=== PATIENT | female | born 1965 | race Caucasian/White ===

== ENCOUNTER 2016-08-08 19:07 | Inpatient (IN) | payer OTHER, SELFPAY ==
[~2016-08-08] VITALS: Ht 162.6 cm; Wt 63.6 kg
[2016-08-08] MEDS ORDERED: LORazepam 2 MG/ML VIAL (J2060) IV STA ×2 (19:12→19:17)
[2016-08-08 19:35] LABS: BASO # 0.1 K/mm3 (0.0-0.2); BASO % 0.4 % (0.0-1.0); EOS # 0.2 K/mm3 (0.0-0.50); EOS % 1.3 % (0.0-3.0); LARGE UNSTAINED CELL # 0.6 K/mm3 (0.0-0.4); LARGE UNSTAINED CELL % 3.7 % (0.0-4.0); LYMPH # 8.1 K/mm3 (1.5-4.5); LYMPH % 53.3 % (24.0-44.0); MEAN CORPUSCULAR HEMOGLOBIN 31.3 pg (27.0-33.0); MEAN CORPUSCULAR HGB CONC 34.1 g/dl (32.0-36.5); MEAN CORPUSCULAR VOLUME 91.9 fl (80.0-96.0); MONO # 0.6 K/mm3 (0.0-0.8); MONO % 3.8 % (0.0-5.0); NEUTROPHILS # 5.6 K/mm3 (1.8-7.7); NEUTROPHILS % 37.4 % (36.0-66.0); PLATELET COUNT, AUTOMATED 344 k/mm3 (150-450); RED CELL DISTRIBUTION WIDTH 12.8 % (11.5-14.5)
[2016-08-08 19:40] LABS: WHITE BLOOD COUNT 15.1 K/mm3 (4.0-10.0)
[2016-08-08] MEDS ORDERED: MIDAZOLAM HCL 50 MG in D5W 40 ML IV SCH ×2 (19:45→19:50)
[2016-08-08] MEDS ORDERED: NS 1,000 ML IV ONE (19:45)
[2016-08-08 19:49] LABS: ANION GAP 13 MEQ/L (8-16); BLOOD UREA NITROGEN 10 MG/DL (7-18); CALCIUM LEVEL 8.5 MG/DL (8.5-10.1); CARBON DIOXIDE LEVEL 18 MEQ/L (21-32); CHLORIDE LEVEL 110 MEQ/L (98-107); CREATININE FOR GFR 0.99 MG/DL (0.55-1.02); GLOMERULAR FILTRATION RATE > 60.0 (>58); GLUCOSE, FASTING 100 MG/DL (70-105); POTASSIUM SERUM 3.7 MEQ/L (3.5-5.1); SODIUM LEVEL 141 MEQ/L (136-145)
[2016-08-08] MEDS ORDERED: MIDAZOLAM INJ 5 MG/ML VIAL (J2250) As Ordered ONE (19:49)
[2016-08-08 20:00] LABS: ALBUMIN/GLOBULIN RATIO 1.18 (1.00-1.93); ALKALINE PHOSPHATASE 97 U/L (45-117); ALT/SGPT 17 U/L (12-78); AST/SGOT 9 U/L (15-37); BILIRUBIN,DIRECT 0.1 MG/DL (0.0-0.2); BILIRUBIN,TOTAL 0.4 MG/DL (0.2-1.0); TOTAL PROTEIN 7.4 GM/DL (6.4-8.2)
[2016-08-08] MEDS ORDERED: PHENYTOIN INJection 1,000 MG in NS 100 ML IV ONE (20:00)
[2016-08-08] MEDS ORDERED: TRAZ150T14 PO (20:30)
[2016-08-08] MEDS ORDERED: LAMO200T PO (20:30)
[2016-08-08] MEDS ORDERED: ZANA4TAB PO (20:30)
[2016-08-08] MEDS ORDERED: [UNRECOGNIZED DRUG - OTHER] (20:30)
[2016-08-08] MEDS ORDERED: CETI10TA PO (20:30)
[2016-08-08] MEDS ORDERED: APRI0.37 PO (20:30)
[2016-08-08] MEDS ORDERED: VITMTA PO (20:30)
[2016-08-08] MEDS ORDERED: SERT-138 PO (20:30)
[2016-08-08] MEDS ORDERED: TOPI200T4 PO (20:30)
[2016-08-08] MEDS ORDERED: VITA100066 PO (20:30)
[2016-08-08] MEDS ORDERED: CYCL100C5 PO (20:30)
[2016-08-08] MEDS ORDERED: ECOT81TA5 PO (20:31)
[2016-08-08] MEDS ORDERED: FOLITAB2 PO (20:31)
[2016-08-08] MEDS ORDERED: ACET30TAB PO (20:32)
[2016-08-08] MEDS ORDERED: IBUP60TA PO (20:32)
[2016-08-08] MEDS ORDERED: FOLI1TAB2 PO (20:33)
[2016-08-08 20:40] LABS: ABG BASE EXCESS -5.2 (-2.0-2.0); ABG HCO3 19.7 MEQ/L (22.0-26.0); ABG PARTIAL PRESSURE CO2 36.3 mmHg (35.0-45.0); ABG STANDARD HCO3 20.2 MEQ/L (22.0-26.0); ABG TOTAL CO2 20.8 MEQ/L (22.0-29.0); ABG pH (ARTERIAL) 7.353 UNITS (7.350-7.450)
[2016-08-08] MEDS ORDERED: DEXTROSE 50% 50 ML SYRINGE IV PRN (20:45)
[2016-08-08] MEDS ORDERED: MIDAZOLAM INJ 2 MG/2 ML VIAL (J2250) IV PRN (20:45)
[2016-08-08] MEDS ORDERED: MORPHINE 2 MG/ML 1ML SYRINGE IV PRN (20:45)
[2016-08-08] MEDS ORDERED: GLUCAGON FOR INJ 1 MG VIAL (J1610) SC PRN (20:45)
[2016-08-08] MEDS ORDERED: GLUCOSE 4 GM CHEW TABLET PO PRN (20:45)
[2016-08-08] MEDS: PROPOFOL 1,000 MG in APPROPRIATE DILUENT 1 EA IV SCH (20:54)
[2016-08-08 21:08] LABS: METHADONE URINE NEGATIVE (NEGATIVE)
--- NOTE | 2016-08-08 21:09 | REP ---
CHEST: Single AP supine portable view of the chest is performed. There is no acute infiltrate or pulmonary edema. The heart is normal in size and the mediastinal silhouette is unremarkable. IMPRESSION: No acute infiltrate. Signed by Reji Whitaker MD 08/09/2016 05:23 P
--- NOTE | 2016-08-08 21:22 | REP ---
CHEST, PORTABLE: AP portable view of the chest is performed. There is no acute infiltrate. Endotracheal tube has been placed. The tip is 2.4 cm above the kaz. Left-sided metallic device is again noted with a lead extending into the left side of the neck. Heart is normal in size and the mediastinal silhouette is unremarkable. IMPRESSION: Endotracheal tube tip 2.4 cm above the kaz. No acute infiltrate. Signed by Reji Whitaker MD 08/09/2016 05:23 P
--- NOTE | 2016-08-08 21:43 | HPE ---
DATE OF ADMISSION: 08/08/2016 HISTORY AND PHYSICAL/CRITICAL CARE NOTE: I was called to see this 50-year-old female who presented to the emergency department with seizures. She was evaluated and given benzodiazepines in the field by EMS but seizures persisted. She required additional doses of benzodiazepines on arrival. Eventually her seizures did jemma, however, she became quite somnolent, her airway became unstable and an endotracheal tube was placed by the emergency room physicians. She is now intubated, sedated and mechanically ventilated. The patient is unable to give meaningful history, unable to respond to questions regarding review of systems or other matters regarding the history of this current event. Past medical history gleaned from her electronic health record includes a history of seizure disorder, Crohn's disease, diabetes, drug and alcohol use and misuse. There is notation of a vagal nerve stimulator and a lacunar infarction on prior imaging studies. At bedside she is sedate, temperature is 99, pulse rate 101, respirations 16/16 delivered, blood pressure 134/70. HEENT: Her pupils are equal, 4 mm, respond to light. Corneal reflexes intact. There is an endotracheal tube at 25 cm. Neck is supple. No meningismus. There is no air leak. The heart sounds are regular. Breath sounds coarse, diminished, expiration phase mildly prolonged. Chest is symmetric, mildly increased in its AP diameter. The abdomen is soft. There are bowel sounds in the right lower quadrant. No palpable mass. Extremities are cool. Pulses are easily palpable times four. DIAGNOSTIC STUDIES: Her white cell count is 15.1, hemoglobin 13.6, hematocrit 39.8, platelet count 344,000. Differential white cell count shows 53% neutrophils. Electrolytes are sodium 141, potassium 3.7, chloride 110, CO2 18, BUN 10, creatinine 0.9, glucose 100, lactic acid 5.7, bilirubin 0.4, AST is 9, ALT of 17. Ammonia was 48, troponin less than 0.02, albumin is 4. Toxicology was positive for benzodiazepines, negative for all else. Arterial blood gas shows pH 7.35, pCO2 36, pO2 181. Chest x-ray image was reviewed, the report is pending. The endotracheal tube appears to be in good position. I see no infiltrates. The primary problem requiring critical attention is status epilepsy. The patient has received a loading dose of Dilantin, will continue with Dilantin 100 mg every 8 hours. Neurology has been consulted. Acute respiratory failure. Will initiate mechanical ventilation, sedate with propofol and follow arterial blood gases. Deep venous thrombosis (DVT) prophylaxis will be addressed with subcutaneous heparin. Ulcer prophylaxis will be addressed with IV Protonix. Glycemic control will be addressed with fingerstick blood sugars and coverage. The patient's condition is critical. Prognosis is guarded. 1 hour and 34 minutes was spent in the provision of bedside critical care and coordination in addition to any procedure time. Edited: damon 08/15/2016 0720 MTDGodwin
[2016-08-08 22:30] VITALS: BP 116/72
[2016-08-09] VITALS (14 sets, daily range): BP systolic 93–118; BP diastolic 54–82; O2SAT 98
[2016-08-09] MEDS: CHLORHEXIDINE GLUCONATE 0.12 % 15ML UDC (PERIDEX ORAL RINSE) MT SCH ×2 (00:14→09:02)
[2016-08-09] MEDS: PHENYTOIN 100 MG/2 ML VIAL (J1165) IV SCH ×4 (00:15→21:03)
[2016-08-09] MEDS: D5W/0.9% SODIUM CHLORIDE 1,000 ML IV SCH ×2 (00:15→12:50)
[2016-08-09] MEDS: HEPARIN SOD (PORCINE) 5000 UNITS/ML VIAL SC SCH ×4 (00:15→21:03)
[2016-08-09] MEDS: HumaLOG INSULIN (NovoLOG) PER UNIT SC SCH ×5 (00:16→20:54)
[2016-08-09] MEDS: PROPOFOL 1,000 MG in APPROPRIATE DILUENT 1 EA IV SCH ×3 (04:41)
[2016-08-09 05:13] LABS: BASO % 0.3 % (0.0-1.0); EOS # 0.1 K/mm3 (0.0-0.50); LARGE UNSTAINED CELL # 0.2 K/mm3 (0.0-0.4); LARGE UNSTAINED CELL % 2.1 % (0.0-4.0); LYMPH # 2.8 K/mm3 (1.5-4.5); LYMPH % 27.2 % (24.0-44.0); MEAN CORPUSCULAR HEMOGLOBIN 31.3 pg (27.0-33.0); MEAN CORPUSCULAR HGB CONC 34.2 g/dl (32.0-36.5); MEAN CORPUSCULAR VOLUME 91.5 fl (80.0-96.0); MONO # 0.4 K/mm3 (0.0-0.8); MONO % 3.9 % (0.0-5.0); NEUTROPHILS # 6.8 K/mm3 (1.8-7.7); NEUTROPHILS % 65.4 % (36.0-66.0); PLATELET COUNT, AUTOMATED 255 k/mm3 (150-450); RED CELL DISTRIBUTION WIDTH 12.7 % (11.5-14.5); WHITE BLOOD COUNT 10.4 K/mm3 (4.0-10.0)
[2016-08-09 05:30] LABS: ALKALINE PHOSPHATASE 74 U/L (45-117); ALT/SGPT 15 U/L (12-78); ANION GAP 9 MEQ/L (8-16); AST/SGOT 19 U/L (15-37); BILIRUBIN,TOTAL 0.2 MG/DL (0.2-1.0); BLOOD UREA NITROGEN 12 MG/DL (7-18); CALCIUM LEVEL 7.3 MG/DL (8.5-10.1); CARBON DIOXIDE LEVEL 21 MEQ/L (21-32); CHLORIDE LEVEL 112 MEQ/L (98-107); CHOLESTEROL LEVEL 173 MG/DL (< 200); CREATININE FOR GFR 0.61 MG/DL (0.55-1.02); GLOMERULAR FILTRATION RATE > 60.0 (>58); GLUCOSE, FASTING 127 MG/DL (70-105); SODIUM LEVEL 142 MEQ/L (136-145); TRIGLYCERIDES LEVEL 143 MG/DL (<150)
[2016-08-09 05:39] LABS: ABG BASE EXCESS -2.5 (-2.0-2.0); ABG HCO3 21.7 MEQ/L (22.0-26.0); ABG PARTIAL PRESSURE CO2 35.8 mmHg (35.0-45.0); ABG PARTIAL PRESSURE O2 108.1 mmHg (75.0-100.0); ABG STANDARD HCO3 22.4 MEQ/L (22.0-26.0); ABG TOTAL CO2 22.8 MEQ/L (22.0-29.0); ABG pH (ARTERIAL) 7.401 UNITS (7.350-7.450)
[2016-08-09 06:12] LABS: ALBUMIN/GLOBULIN RATIO 1.07 (1.00-1.93)
[2016-08-09 06:21] LABS: TOTAL PROTEIN 5.8 GM/DL (6.4-8.2)
[2016-08-09] MEDS: IPRATROPIUM 0.5MG/ALBUTEROL 2.5MG INH SOL UD 3ML (DUONEB)(J7620) NEB SCH ×4 (07:27→19:13)
--- NOTE | 2016-08-09 07:55 | REP ---
Clinical: Endotracheal tube placement. Comparison: 08/08/2016 at 07:24 p.m.. Findings: Endotracheal tube approximately 3.6 cm above the kaz. Nasogastric tube courses below the left hemidiaphragm. Mediastinum and cardiac silhouette normal. Lung sheffield demonstrate chronic changes and emphysematous disease without focal consolidation, effusion, or pneumothorax. Skeletal structures intact. Impression: Lines and tubes in satisfactory position. Chronic changes. No acute cardiopulmonary process identified. Signed by Mihai Quezada MD 08/09/2016 07:46 A
[2016-08-09] MEDS ORDERED: SUCCINYLCHOLINE 100 MG/5 ML SYRINGE (J0330) ONE (08:15)
[2016-08-09] MEDS ORDERED: ETOMIDATE INJ 20MG/10ML VIAL ONE (08:15)
[2016-08-09] MEDS ORDERED: PANTOPRAZOLE 40MG INJ (PROTONIX) (C9113) IV SCH (09:00)
--- NOTE | 2016-08-09 09:18 | ECGEPIP ---
Stationary ECG Study [facility] - ED Test Date: 2016-08-08 Pat Name: YARELI KAY Department: Room: [place] [address] Gender: F [employer]er: RuizB: [id number] Requested By: LISANDRA Connelly Order Number: [id number] Reading MD: Gabriel Mejia Measurements Intervals [place] Rate: 105 P: 61 PA: 142 QRS: 68 QRSD: 89 T: 60 QT: 349 QTc: 463 Interpretive Statements SINUS TACHYCARDIA NONSPECIFIC T-WAVE ABNORMALITY NO PRIORS Electronically Signed On 08-09-2016 9:18:34 EDT by Gabriel Mejia
--- NOTE | 2016-08-09 10:25 | CCN ---
DATE: 08/09/2016 CRITICAL CARE NOTE: The patient is seen in the intensive care unit intubated, mechanically ventilated, critically ill. Through the night, no further seizure activity was appreciated and her sedation has now been weaned. She is displaying spontaneous respiratory efforts. Her temperature is 98.2, T max for the past 24 hours 98.7, pulse rate 71, respirations 16, blood pressure 96/63. Input and output for the past 24 hours 1127 in, 672 out. At bedside, she is ill appearing. Her oral and nasal mucosa are pink. Pupils are equal and respond to light. Endotracheal tube and orogastric tubes are in good position. Neck is supple without meningismus. Heart sounds are regular without appreciable murmur. Breath sounds are coarse, mildly diminished in the bases. No other focal sounds. Abdomen soft. Bowel sounds are appreciated in the right lower quadrant. No palpable mass. Extremities: Pulses are palpable. There is a cast in place on her leg. DIAGNOSTIC STUDIES: Sodium is 142, potassium 3.0, chloride 112, CO2 21, BUN 12, creatinine 0.6, glucose 127, white cell count is 10.4, hemoglobin 11.3, hematocrit 33, platelet count 235,000. Arterial blood gases show pH 7.40, pCO2 35, pO2 108, this is on an intermittent mandatory ventilation with an FiO2 of 0.3. CPK was 449, AST 19, ALT 15, albumin of 3. Calcium is 7.3, phosphorus 4. Imaging studies show tubes and lines in good position. The primary problem requiring critical attention is acute respiratory failure. We will proceed with weaning in hopes of extubation. Status epilepsy. The patient has been started on Dilantin. Neuro consult has been called. We will await the neurologist thoughts regarding optimal antiseizure medication. Toxic metabolic encephalopathy. The patient's mentation is much improved this morning. Multiple other medical conditions will be further explored with her once we are able to speak with her after extubation and her home medications will be rewritten. Hypokalemia. We will replace and recheck value. Deep venous thrombosis (DVT) and ulcer prophylaxis are in place. Glycemic control is acceptable. The patient's condition remains critical. Prognosis is guarded. 1 hour and 15 minutes in provision of bedside critical care and coordination exclusive of procedure time.
--- NOTE | 2016-08-09 14:47 | REP ---
Clinical: Status epilepticus. Comparison: None. Findings: The ventricle, sulci, and cisterns are symmetric and normal in appearance. Whitaker white differentiation is maintained. No acute intracranial hemorrhage, mass/mass effect, pathology or trauma noted. No extra-axial fluid collections are identified. There is a very vague rounded area of low density in the left temporal fossa which is likely secondary to surrounding artifact and less likely true lesion. Calvarium is intact. The sinuses are clear. Impression: Essentially normal noncontrast CT of the head. Subtle area of low density in the left temporal fossa likely artifactual and less likely true lesion given the lack of mass effect or associated secondary findings. Signed by Mihai Quezada MD 08/09/2016 02:39 P
[2016-08-09] MEDS ORDERED: GLUCAGON FOR INJ 1 MG VIAL (J1610) SC PRN (15:30)
[2016-08-09] MEDS ORDERED: SLF 3 ML SYR IV PRN (15:30)
[2016-08-09] MEDS ORDERED: DEXTROSE 50% 50 ML SYRINGE IV PRN (15:30)
[2016-08-09] MEDS ORDERED: GLUCOSE 4 GM CHEW TABLET PO PRN (15:30)
[2016-08-09] MEDS: NICOTINE 14 MG/24 HR TRANSDERMAL TD SCH (20:01)
[2016-08-09] MEDS: SLF 3 ML SYR IV SCH (21:04)
[2016-08-10] VITALS (7 sets, daily range): BP systolic 97–122; BP diastolic 51–60
[2016-08-10] MEDS: HEPARIN SOD (PORCINE) 5000 UNITS/ML VIAL SC SCH ×3 (05:02→21:24)
[2016-08-10] MEDS: SLF 3 ML SYR IV SCH ×3 (05:02→21:25)
[2016-08-10 05:12] LABS: BASO % 0.2 % (0.0-1.0); EOS # 0.1 K/mm3 (0.0-0.50); EOS % 0.9 % (0.0-3.0); LARGE UNSTAINED CELL # 0.2 K/mm3 (0.0-0.4); LARGE UNSTAINED CELL % 1.9 % (0.0-4.0); LYMPH # 3.2 K/mm3 (1.5-4.5); LYMPH % 34.7 % (24.0-44.0); MEAN CORPUSCULAR HEMOGLOBIN 29.9 pg (27.0-33.0); MEAN CORPUSCULAR HGB CONC 32.7 g/dl (32.0-36.5); MEAN CORPUSCULAR VOLUME 91.6 fl (80.0-96.0); MONO # 0.3 K/mm3 (0.0-0.8); MONO % 3.9 % (0.0-5.0); NEUTROPHILS % 58.4 % (36.0-66.0); PLATELET COUNT, AUTOMATED 256 k/mm3 (150-450); WHITE BLOOD COUNT 8.6 K/mm3 (4.0-10.0)
[2016-08-10 05:36] LABS: ALT/SGPT 16 U/L (12-78); ANION GAP 8 MEQ/L (8-16); AST/SGOT 26 U/L (15-37); BLOOD UREA NITROGEN 7 MG/DL (7-18); CALCIUM LEVEL 7.6 MG/DL (8.5-10.1); CARBON DIOXIDE LEVEL 20 MEQ/L (21-32); CHLORIDE LEVEL 116 MEQ/L (98-107); CREATININE FOR GFR 0.45 MG/DL (0.55-1.02); GLOMERULAR FILTRATION RATE > 60.0 (>58); GLUCOSE, FASTING 105 MG/DL (70-105); PHOSPHORUS LEVEL 3.5 MG/DL (2.5-4.9); POTASSIUM SERUM 3.6 MEQ/L (3.5-5.1); SODIUM LEVEL 144 MEQ/L (136-145)
[2016-08-10 05:37] LABS: ALBUMIN 2.6 GM/DL (3.2-5.2); ALBUMIN/GLOBULIN RATIO 0.87 (1.00-1.93); ALKALINE PHOSPHATASE 69 U/L (45-117); BILIRUBIN,TOTAL 0.5 MG/DL (0.2-1.0); CHOLESTEROL LEVEL 167 MG/DL (< 200); TOTAL PROTEIN 5.6 GM/DL (6.4-8.2); TRIGLYCERIDES LEVEL 142 MG/DL (<150)
[2016-08-10] MEDS: IPRATROPIUM 0.5MG/ALBUTEROL 2.5MG INH SOL UD 3ML (DUONEB)(J7620) NEB SCH ×4 (07:15→19:31)
--- NOTE | 2016-08-10 07:43 | CR ---
DATE OF CONSULTATION: 08/09/2016 REFERRING PHYSICIAN: Dr. Harish Alexandra. REASON FOR CONSULTATION: Seizures. HISTORY OF PRESENT ILLNESS: Cheyenne Velásquez is a 50-year-old woman with history of seizures who was at her baseline state of health until yesterday when she had recurrent seizures. She was brought to [facility] emergency department where she was intubated to protect her airway. She was given intravenous Dilantin and has not had any recurrent seizures. She was extubated this morning. The patient states that she has history of generalized tonic-clonic seizures for the last 8 years which occur once or twice a month and are triggered by stress, noise, arguments. She follows with Dr. Conklin in [place]. She was on Depakote in past. She has been on Topamax and Lamictal when she had her recurrent seizures. She has history of migraine and has periodic headaches. She currently denies any neck or back pain. PAST MEDICAL HISTORY: Crohn's disease. Seizures. History of marijuana use. SOCIAL HISTORY: She smokes one pack per day. She has tried marijuana. She states that she occasionally drinks alcohol. FAMILY HISTORY: She has two children. Her children are grown up. She lives alone. She denies any family history of seizures. REVIEW OF SYSTEMS: All systems were reviewed and were found to be noncontributory except as mentioned in history of present illness. PHYSICAL EXAMINATION: Temperature 99.8, pulse 88, respiratory rate 20, blood pressure 106/54, 99% saturation on room air. Heart: Regular rate and rhythm. Lungs: Clear to auscultation. Abdomen: Soft, nontender, nondistended. Neurological exam: The patient is awake, alert, oriented to place, person and time. Normal speech, comprehension and repetition. Extraocular muscles are intact. No facial weakness. Tongue and uvula are midline. 5/5 strength in all four extremities. Deep tendon flexes 2+ throughout. Normal sensation to light touch, pinprick, vibration. No dysmetria or ataxia. Her gait could not be tested as she is laying in ICU currently. There are no gross musculoskeletal abnormalities. Peripheral pulses are palpable. There is no pedal edema. Ear, nose, throat examination is within normal limits. DIAGNOSTIC STUDIES: CT scan of her head was within normal limits. ASSESSMENT: 1. Generalized tonic-clonic seizures. 2. Migraines, without aura, not intractable, without status migrainosus. PLAN: 1. Restart her Lamictal and increase dose to 250 mg by mouth twice daily. 2. Topamax 200 mg by mouth twice daily. 3. She has an appointment scheduled with her neurologist, Dr. Conklin in [place] and she will follow up with her neurologist. Complete seizure precautions were explained. She is aware that she should not be driving.
[2016-08-10] MEDS: HumaLOG INSULIN (NovoLOG) PER UNIT SC SCH ×4 (07:50→21:00)
--- NOTE | 2016-08-10 07:59 | REP ---
Clinical: Endotracheal tube. Comparison: 08/09/2016. Findings: Previously noted endotracheal tube and nasogastric tube have been removed. Mediastinum and cardiac silhouette are stable/normal. Diffuse chronic interstitial changes are suggested superimposed right middle lobe atelectasis/infiltrate cannot be excluded. Impression: The ETT and NGT been removed. Chronic interstitial changes. Right middle lobe infiltrate/atelectasis. Signed by Mihai Quezada MD 08/10/2016 07:50 A
[2016-08-10] MEDS: NICOTINE 14 MG/24 HR TRANSDERMAL TD SCH (09:32)
[2016-08-10] MEDS: lamoTRIgine 25 MG TAB PO SCH ×2 (10:40→21:25)
[2016-08-10] MEDS: lamoTRIgine 100MG TAB PO SCH ×2 (10:40→21:25)
[2016-08-10] MEDS: TOPIRAMATE (TopAMAX) 100 MG TAB PO SCH ×2 (10:40→21:25)
[2016-08-11] MEDS: HEPARIN SOD (PORCINE) 5000 UNITS/ML VIAL SC SCH ×3 (05:30→21:01)
[2016-08-11] MEDS: SLF 3 ML SYR IV SCH ×3 (05:31→21:01)
[2016-08-11 06:00] VITALS: BP 117/57
[2016-08-11 06:00] LABS: BASO % 0.5 % (0.0-1.0); EOS # 0.2 K/mm3 (0.0-0.50); EOS % 2.7 % (0.0-3.0); LARGE UNSTAINED CELL # 0.1 K/mm3 (0.0-0.4); LARGE UNSTAINED CELL % 2.4 % (0.0-4.0); LYMPH # 2.5 K/mm3 (1.5-4.5); LYMPH % 38.7 % (24.0-44.0); MEAN CORPUSCULAR HEMOGLOBIN 29.3 pg (27.0-33.0); MEAN CORPUSCULAR VOLUME 91.7 fl (80.0-96.0); MONO # 0.3 K/mm3 (0.0-0.8); NEUTROPHILS # 3.1 K/mm3 (1.8-7.7); NEUTROPHILS % 50.9 % (36.0-66.0); PLATELET COUNT, AUTOMATED 276 k/mm3 (150-450); RED CELL DISTRIBUTION WIDTH 12.9 % (11.5-14.5)
[2016-08-11 06:57] LABS: ALBUMIN 2.9 GM/DL (3.2-5.2); ALBUMIN/GLOBULIN RATIO 1.07 (1.00-1.93); ALKALINE PHOSPHATASE 67 U/L (45-117); ALT/SGPT 18 U/L (12-78); ANION GAP 8 MEQ/L (8-16); AST/SGOT 16 U/L (15-37); BILIRUBIN,TOTAL 0.3 MG/DL (0.2-1.0); BLOOD UREA NITROGEN 11 MG/DL (7-18); CALCIUM LEVEL 8.2 MG/DL (8.5-10.1); CARBON DIOXIDE LEVEL 22 MEQ/L (21-32); CHLORIDE LEVEL 117 MEQ/L (98-107); CHOLESTEROL LEVEL 171 MG/DL (< 200); CREATININE FOR GFR 0.52 MG/DL (0.55-1.02); GLOMERULAR FILTRATION RATE > 60.0 (>58); GLUCOSE, FASTING 92 MG/DL (70-105); PHOSPHORUS LEVEL 4.1 MG/DL (2.5-4.9); POTASSIUM SERUM 3.9 MEQ/L (3.5-5.1); SODIUM LEVEL 147 MEQ/L (136-145); TOTAL PROTEIN 5.6 GM/DL (6.4-8.2); TRIGLYCERIDES LEVEL 144 MG/DL (<150)
[2016-08-11] MEDS: IPRATROPIUM 0.5MG/ALBUTEROL 2.5MG INH SOL UD 3ML (DUONEB)(J7620) NEB SCH ×4 (07:24→19:43)
--- NOTE | 2016-08-11 07:33 | EEG ---
DATE OF EE08/10/2016 REFERRING PHYSICIAN: Harish Alexandra DO DIAGNOSIS: Seizures. EEG NUMBER: [id number] HISTORY: Patient is a 50-year-old woman who was admitted at [facility] due to seizure like spells. This EEG was done to rule out epileptic potential. She is currently on Topamax, Lamictal, Dilantin, etc. TECHNICAL DESCRIPTION: This digital EEG was recorded by 21 scalp, ear and two EKG electrodes and was reviewed in bipolar and referential montages following reformatting in 10-20 international electrode placement system. INTERPRETATION: The patient was noted to be in awake and drowsy states during this EEG. Resting awake background rhythm consisted of well-formed posterior dominant rhythm with anterior/posterior gradient comprising of 9 Hz alpha activity measuring 15-40 microvolts in amplitude which was symmetric and reactive to eye opening. Attenuation of posterior dominant rhythm was seen during transition into drowsiness. Stage 1 and 2 sleep were reviewed and were symmetric bilaterally. Hyperventilation and photic stimulation remained unremarkable. EKG revealed normal sinus rhythm. No focal, lateralizing or epileptiform abnormalities were seen. No clinical or electrographic seizures were recorded. CONCLUSION: This EEG in awake, drowsy states, stage 1 and 2 sleep is within normal limits.
[2016-08-11] MEDS: HumaLOG INSULIN (NovoLOG) PER UNIT SC SCH ×4 (07:42→21:00)
--- NOTE | 2016-08-11 07:56 | REP ---
Clinical: Endotracheal tube placement. Comparison: 08/10/2016. Findings: Mediastinum and cardiac silhouette are normal. No endotracheal tube is identified. Lung sheffield are relatively clear and the previously suggested right middle lobe atelectasis has resolved. No acute consolidation, effusion, or pneumothorax. Skeletal structures intact. Impression: 1. No endotracheal tube identified. 2. No acute cardiopulmonary process. Previous right middle lobe atelectasis resolved. Signed by Mihai Quezada MD 08/11/2016 07:47 A
[2016-08-11] MEDS: lamoTRIgine 100MG TAB PO SCH ×2 (08:43→21:00)
[2016-08-11] MEDS: TOPIRAMATE (TopAMAX) 100 MG TAB PO SCH ×2 (08:43→21:00)
[2016-08-11] MEDS: NICOTINE 14 MG/24 HR TRANSDERMAL TD SCH (08:43)
[2016-08-11] MEDS: lamoTRIgine 25 MG TAB PO SCH ×2 (08:43→21:00)
[2016-08-11 10:22] LABS: TOPIRAMATE LEVEL 12.1 ug/mL (2.0-25.0)
[2016-08-11 14:00] VITALS: BP 96/57
--- NOTE | 2016-08-11 20:55 | IPNPDOC ---
Subjective Date Seen The patient was seen on 08/11/16. Subjective Chief Complaint/HPI The patient is a 50-year-old female admitted with a reason for visit of Status Epilipticus. Events since last encounter pt seen and examined, doing well, no overnight events. Objective Physical Examination General Exam: Positive: No Acute Distress Eye Exam: Positive: PERRLA, Conjunctiva & lids normal, EOMI, Negative: Sclera icteric Chest Exam: Positive: Clear to auscultation, Normal air movement Heart Exam: Positive: Rate Normal, Regular Rhythm, Normal S1, Normal S2, Negative: Murmurs, Rubs Abdomen Exam: Positive: Normal bowel sounds, Soft, Negative: Tenderness, Hepatospenomegaly Extremity Exam: Positive: Normal pulses, Negative: Clubbing, Cyanosis, Edema Assessment /Plan Problems (1) Status epilepticus Status: Acute Response to Treatment: Improving (2) Diabetes Status: Chronic Response to Treatment: Stable (3) Respiratory failure Status: Resolved Plan/VTE VTE Prophylaxis Ordered?: Yes Plan/Urinary Catheter Reason for insertion/continuin: Critical Pt monitoring VS, I&O, [facility] Vital Signs/I&O Vital Signs Date Time Temp Pulse Resp B/P (MAP) Pulse Ox O2 Delivery O2 Flow Rate FiO2 08/11/16 14:00 98.8 77 16 96/57 (70) 99 Room Air 08/09/16 09:25 28 08/08/16 19:23 4 I&O- Last 24 Hours up to 6 AM 08/11/16 06:00 Intake Total 1375 ml Output Total 900 ml Balance 475 ml Laboratory Data 24H LABS Laboratory Tests 2 08/11/16 05:27: White Blood Count 6.0, Red Blood Count 3.74L, Hemoglobin 11.0L, Hematocrit 34.3L , Mean Corpuscular Volume 91.7, Mean Corpuscular Hemoglobin 29.3, Mean Corpuscular Hemoglobin Concent 32.0, Red Cell Distribution Width 12.9, Platelet Count 276, Neutrophils (%) (Auto) 50.9, Lymphocytes (%) (Auto) 38.7, Monocytes ( %) (Auto) 5.0, Eosinophils (%) (Auto) 2.7, Basophils (%) (Auto) 0.5, Neutrophils # (Auto) 3.1, Lymphocytes # (Auto) 2.5, Monocytes # (Auto) 0.3, Eosinophils # (Auto) 0.2, Basophils # (Auto) 0.0, Large Unclassified Cells % 2.4 , Large Unclassified Cells # 0.1, Anion Gap 8, Glomerular Filtration Rate > 60.0 , Blood Urea Nitrogen 11#, Creatinine 0.52L, Sodium Level 147H, Potassium Level 3.9, Chloride Level 117H, Carbon Dioxide Level 22, Calcium Level 8.2L, Phosphorus Level 4.1, Aspartate Amino Transf (AST/SGOT) 16, Alanine Aminotransferase (ALT/SGPT) 18, Lactate Dehydrogenase 194, Total Creatine Kinase 408H, Alkaline Phosphatase 67, Total Bilirubin 0.3, Triglycerides Level 144, Cholesterol Level 171, Total Protein 5.6L, Albumin 2.9L, Albumin/Globulin Ratio 1.07 08/11/16 11:28: Bedside Glucose (Misc Panel) 127H 08/11/16 16:52: Bedside Glucose (Misc Panel) 117H CBC/BMP Laboratory Tests 08/11/16 05:27 Red Blood Count 3.74 L, Mean Corpuscular Volume 91.7, Mean Corpuscular Hemoglobin 29.3, Mean Corpuscular Hemoglobin Concent 32.0, Red Cell Distribution Width 12.9, Neutrophils (%) (Auto) 50.9, Lymphocytes (%) (Auto) 38.7, Monocytes (%) (Auto) 5.0, Eosinophils (%) (Auto) 2.7, Basophils (%) (Auto ) 0.5, Neutrophils # (Auto) 3.1, Lymphocytes # (Auto) 2.5, Monocytes # (Auto) 0.3, Eosinophils # (Auto) 0.2, Basophils # (Auto) 0.0, Calcium Level 8.2 L, Phosphorus Level 4.1, Aspartate Amino Transf (AST/SGOT) 16, Alanine Aminotransferase (ALT/SGPT) 18, Lactate Dehydrogenase 194, Total Creatine Kinase 408 H, Alkaline Phosphatase 67, Total Bilirubin 0.3, Triglycerides Level 144, Cholesterol Level 171, Total Protein 5.6 L, Albumin 2.9 L Microbiology Microbiology 08/08/16 Blood Culture - Preliminary, Resulted No Growth after 48 hours. All Specime... 08/08/16 Blood Culture - Preliminary, Resulted No Growth after 48 hours. All Specime... CHESTER HAYNES DO Aug 11, 2016 20:55
[2016-08-11 22:00] VITALS: BP 104/56
[2016-08-12] MEDS: HEPARIN SOD (PORCINE) 5000 UNITS/ML VIAL SC SCH (05:31)
[2016-08-12] MEDS: SLF 3 ML SYR IV SCH (05:32)
[2016-08-12 05:59] LABS: BASO % 0.4 % (0.0-1.0); EOS # 0.2 K/mm3 (0.0-0.50); EOS % 3.3 % (0.0-3.0); LARGE UNSTAINED CELL # 0.2 K/mm3 (0.0-0.4); LARGE UNSTAINED CELL % 3.4 % (0.0-4.0); LYMPH # 2.6 K/mm3 (1.5-4.5); LYMPH % 41.6 % (24.0-44.0); MEAN CORPUSCULAR HEMOGLOBIN 31.7 pg (27.0-33.0); MEAN CORPUSCULAR HGB CONC 34.3 g/dl (32.0-36.5); MEAN CORPUSCULAR VOLUME 92.4 fl (80.0-96.0); MONO # 0.3 K/mm3 (0.0-0.8); MONO % 4.4 % (0.0-5.0); NEUTROPHILS % 46.9 % (36.0-66.0); PLATELET COUNT, AUTOMATED 262 k/mm3 (150-450); RED CELL DISTRIBUTION WIDTH 12.9 % (11.5-14.5); WHITE BLOOD COUNT 6.3 K/mm3 (4.0-10.0)
[2016-08-12 06:00] VITALS: BP 102/56
[2016-08-12 06:12] LABS: ALBUMIN 2.8 GM/DL (3.2-5.2); ALBUMIN/GLOBULIN RATIO 0.88 (1.00-1.93); ALKALINE PHOSPHATASE 67 U/L (45-117); ALT/SGPT 24 U/L (12-78); ANION GAP 9 MEQ/L (8-16); AST/SGOT 23 U/L (15-37); BILIRUBIN,TOTAL 0.2 MG/DL (0.2-1.0); BLOOD UREA NITROGEN 11 MG/DL (7-18); CALCIUM LEVEL 7.8 MG/DL (8.5-10.1); CARBON DIOXIDE LEVEL 21 MEQ/L (21-32); CHLORIDE LEVEL 114 MEQ/L (98-107); CHOLESTEROL LEVEL 176 MG/DL (< 200); CREATININE FOR GFR 0.53 MG/DL (0.55-1.02); GLOMERULAR FILTRATION RATE > 60.0 (>58); GLUCOSE, FASTING 100 MG/DL (70-105); PHOSPHORUS LEVEL 4.1 MG/DL (2.5-4.9); POTASSIUM SERUM 3.5 MEQ/L (3.5-5.1); SODIUM LEVEL 144 MEQ/L (136-145); TRIGLYCERIDES LEVEL 152 MG/DL (<150)
[2016-08-12] MEDS: HumaLOG INSULIN (NovoLOG) PER UNIT SC SCH ×2 (07:29→12:57)
[2016-08-12] MEDS: IPRATROPIUM 0.5MG/ALBUTEROL 2.5MG INH SOL UD 3ML (DUONEB)(J7620) NEB SCH (08:33)
--- NOTE | 2016-08-12 09:03 | REP ---
CHEST, SINGLE VIEW: COMPARISON: 08/11/2016. There is no evidence of acute infiltrate. No pleural effusion is seen. The heart is normal in size. The mediastinal silhouette is unremarkable. The visualized osseous structures are intact. IMPRESSION: No acute pulmonary disease. There is a metallic device overlying the left hemithorax with a wire extending into the left neck. Signed by Reji Whitaker MD 08/12/2016 04:35 P
[2016-08-12] MEDS: lamoTRIgine 25 MG TAB PO SCH (09:24)
[2016-08-12] MEDS: TOPIRAMATE (TopAMAX) 100 MG TAB PO SCH (09:24)
[2016-08-12] MEDS: NICOTINE 14 MG/24 HR TRANSDERMAL TD SCH (09:25)
[2016-08-12] MEDS: lamoTRIgine 100MG TAB PO SCH (09:25)
[2016-08-12] MEDS ORDERED: LAMI25TA PO (10:45)
== END 2016-08-12 13:05 | disposition home or self-care (01) | DRG 53 ==
LOC: M ED 19:19 → M ED INP 20:40 → M ICU 22:24 → M MSPAV 08-10 18:35
PROVIDERS: ADMIT Internal Medicine Pulmonary Disease; ATTEND Internal Medicine
PROC: 5A1945Z Respiratory Ventilation, 24-96 Consecutive Hours (ICD-10-PCS; principal; 2016-08-08)
DX: G40.911 Epilepsy, unspecified, intractable, with status epilepticus (principal); J96.00 Acute respiratory failure, unspecified whether with hypoxia or hypercapnia; K50.90 Crohn's disease, unspecified, without complications; E11.9 Type 2 diabetes mellitus without complications; F19.99 Other psychoactive substance use, unspecified with unspecified psychoactive substance-induced disorder; F17.200 Nicotine dependence, unspecified, uncomplicated